=== PATIENT | female | born 1965 ===

== ENCOUNTER 2020-10-17 11:15 | Outpatient (RCR) | payer OTHER, SELFPAY ==
[2020-10-10 12:59] VITALS: BMI 32.0
--- NOTE | 2020-10-10 13:00 | PC.ADMIT ---
Patient is a 55 year old female who was referred to PHP d/t increase in depressive symptoms with passive SI, increased anxiety and irritability. Patient quit her job d/t Covid as she was fearful she would contract it and moved in with her elderly mother. In addition pt has issues with hoarding and has been binge eating since the pandemic and has gained 60 lbs as a result. Pt reports that she has a hx of attending OA and this has helped her in the past. Patient stated she feels bad about herself and has low self esteem and wants to get back to healthy eating. Patient stated she is here, cause I'm so sad and I don't want to be here on earth . Pt reports passive SI, stating, I wish there was a magic way that I don't have to be here . Denied plans or intent to kill herself. Agreed to call crisis if feeling unsafe. Gave verbal permission to email a copy of her safety plan. Pt also stated she feels bad about, being impatient with my mom . Would like to learn ways to cope with stress. Patient stated she was doing better when she was in her own apartment and working. Denied any substance use. Reports hx of sleep apnea. Stated she used a C-Pap machine years ago and stopped using it as she did not feel she needed it anymore when she lost weight. Pt is afraid to go out or make a doctors appointment d/t the pandemic at this time.
--- NOTE | 2020-10-10 15:18 | P.HPPSP_ITS ---
HPI Chief Complaint: depression Sources of Information: patient interviewed and chart reviewed HPI Narrative: 55 yo female, self-referred, reports long hx of depression, very unhappy childhood forever with increases in the symptom and passive SI- I just don't want to be here , anxiety, irritability, lability with binge eating sx- reports 60 lb weight gain and hoarding sx as problematic. Sleep is variable, at times, pt is up at night and reports she eats all night, more recently, re ports nine hours of sleep per night with late night eating. Pt reports gains and losses of ~100 lbs. She is [age] . Was 160 lbs, now 223lbs. By history has done well with OA, 90 day plan for many years. Pt believes having a job helped her with schedule and symptom mgt, however, now without her job (resigned secondary to COVID), symptoms have exacerbated. Pt recently had LIFX testing, expects results to return on 10/13/20. Also, describes significant issues with hoarding- had difficulty in her apartment, now, living with mother, who is 98, pt finds the symptom to be taking over mother's home as well. Past Psychiatric History: IP: Denies OP: Psychotherapy since college. Currently working with [facility]. Dr. Rebecca Graham for psychopharmacology and Bertha Gonzalez for psychotherapy Trials: Paxil, Celexa, Prozac, Wellbutrin-prompted SI, a stimulant Medical Evaluation Reviewed: No (NA) [facility] Medical History (Updated 10/13/20 @ 10:22 by Kinsey Quevedo, SENIOR WINDOWS ENGINEER) Borderline diabetes Flat feet, bilateral Mili's disease Mitral valve prolapse Obesity Peripheral neuropathy Polycystic disease, ovaries Sleep apnea Syncope Ulcer of right leg Vaso vagal episode Venous insufficiency Narrative: Fears appts-faints, feels ill. ?fainting vs seizure-this was a question she was given by people who have observed her with this clinical activity. Sees Liliana Patel MD of [facility] Family History: Denies Social History: Pt has a degree in psychology from [employer]. 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 Lives with her mom who is 98. Father passed in 2002. Two brothers, both older, 67 and 65. Substance History: Denies Trauma History: Affirms without detail. Diagnostics Vital Signs (24Hr): Body Mass Index 32.0 Meds/Allergies Allergies Allergies Allergy/AdvReac Type Severity Reaction Status Date / Time doxycycline Allergy Unknown Unknown Verified 10/10/20 12:59 Penicillins [PCN] Allergy Unknown Rash Verified 10/10/20 12:59 sulfamethizole Allergy Unknown Unknown Verified 10/10/20 12:59 sulfamethoxazole Allergy Unknown Unknown Verified 10/10/20 12:59 [From Bactrim] trimethoprim [From Bactrim] Allergy Unknown Unknown Verified 10/10/20 12:59 bupropion [From Wellbutrin] AdvReac Severe suicidal Verified 10/13/20 11:55 ideation Mental Status Exam Mental Status Exam Patient Appearance: Well Grooomed, Fatigued and Appropriate Patient Orientation: Person, Place, Time and Situation Level of Consciousness: Awake, Appropriate and Alert Patient Behavior: Appropriate, Talkative, Cooperative, Anxious and Distractible Mood Description: Depressed, Anxious, Flat, Sad, Nervous and Apprehensive Affect Description: Flat Patient Cognition Impaired: No Ability to Follow Directions: Excellent Speech Pattern: Clear, Appropriate and Spontaneous Speech Memory Description: Intact Hallucinations: None Delusions: Not Present Thought Process: Intact and Rumination Thought Content: positive for Intact, positive for Logical and positive for Suicidal Ideation (passive, without plan or intent) Depressive Symptoms: Increased Anxiety, Insomnia, Diff. Making Decisions, Increased Irritability, Difficulty Sleeping, Changes in Appetite, Loss of Int. in Activity, Feelings of Worthlessness, Significant Weight Gain, Hopelessness, Feelings of Guilt, Unhappiness, Increased Fatigue, Thoughts of /Suicide (passive, without plan or intent) and Low Self Esteem Judgement: Good Assessment & Plan Patient educated on: diagnosis, medication risk/benefits (Discussed possible trials of Topiramate, Vyvanse, Sertraline pending consults with her cardiac team for approval), therapeutic strategies and medical condition Informed Consent: further education needed Reason for continued partial hosp. stay Substantial Risk for: harm to self, inability to function and rapid decompensation Certification I certify that partial hospital treatment is medically necessary due to the symptoms and problems resulting from the patient's mental illness and the failure to treat the patient at the partial hospital level of care would likely result in the patient requiring inpatient psychiatric care which could not be prevented at a less intensive level of care.
--- NOTE | 2020-10-13 11:01 | PC.NURSE ---
Pt opened in treatment team.
--- NOTE | 2020-10-16 14:20 | HO.PHPPROGNO ---
Subjective Subjective Reason For Visit: depression Interim History: patient depressed withdrawn reports chronic depressive history since childhood with intermittent improvement has been taking care of mother denies active self-harm Medication Compliance: Yes Mental Status Exam Mental Status Exam Patient Orientation: Person, Place, Time and Situation Level of Consciousness: Awake, Appropriate and Alert Patient Behavior: Appropriate, Talkative, Cooperative, Anxious and Distractible Mood Description: Depressed, Anxious, Flat, Sad, Nervous and Apprehensive Affect Description: Flat Patient Cognition Impaired: No Ability to Follow Directions: Excellent Speech Pattern: Clear, Appropriate and Spontaneous Speech Memory Description: Intact Diagnostics Vital Signs (24Hr): Body Mass Index 32.0 Assessment & Plan Assessment & Plan (1) Major depressive disorder, recurrent episode, severe with anxious distress: Status: Acute Code(s): F33.2 - Major depressive disorder, recurrent severe without psychotic features (2) Mitral valve prolapse: Status: Acute Code(s): I34.1 - Nonrheumatic mitral (valve) prolapse Assessment and Plan: CK EKG GET FAX GET COPY OF GENETIC TESTING EXTENSIVE DISCUSSION REGARDING ADDITION OF L METHYL FOLATE 7.5 MG X 2 WEEKS THEN 15 MG WOULD STRONGLY CONSIDER TMS PATIENT HAD HISTORY ARE OF ARRHYTHMIA ON STIMULANTS IT APPEARS consider Rexulti or Abilify augmentation check past genetic testing consider TMS Certification I certify that partial hospital treatment is medically necessary due to the symptoms and problems resulting from the patient's mental illness and the failure to treat the patient at the partial hospital level of care would likely result in the patient requiring inpatient psychiatric care which could not be prevented at a less intensive level of care. Greater than 50% of the session was spent on counseling and/or coordination of care Discharge Plan Discharge Attending provider: Korey Cunha Medications: New levomefolate calcium [L-Methylfolate] 7.5 mg tablet 7.5 mg PO DAILY Qty: 90 RF: 0 No Action multivitamin Tablet 1 tab PO DAILY RF: 0 levothyroxine 25 mcg Tablet 37.5 mcg PO DAILY RF: 0 cholecalciferol (vitamin D3) [Vitamin D3] 25 mcg (1,000 unit) Capsule 25 mcg PO DAILY RF: 0 Fish Oil Capsule 2,500 mg PO DAILY RF: 0 Viibryd 40 mg Tablet 40 mg PO DAILY RF: 0 metoprolol tartrate 25 mg Tablet 12.5 mg PO BID RF: 0
--- NOTE | 2020-10-17 14:05 | PC.NURSE ---
Spoke to Thelma Moss from [facility] in [place] to make a referral to the virtual Binge eating program at patients request. I was told that patient needed to call her insurance company to confirm that [facility] is her primary insurance and to get the first name last initial of the internet sales representative who confirmed this. (pt did state that she thinks she remembers them telling her this when she called the first time). If [facility] is not the primary patient is to call kely to let them know and they would work with her [employer] insurance to get her into the program. In addition, Thelma Moss stated the patient needs to set up the intake appointment. Pt notified and she stated she would call her insurance company to confirm and call Kely at [phone] with the information to set up the intake appointment.
== END 2020-10-17 23:55 | disposition home or self-care (01) ==
LOC: HO.PHPA 11:15
PROVIDERS: Visit Provider Psychiatry & Neurology Psychiatry
DX: F33.2 Major depressive disorder, recurrent severe without psychotic features (principal); I34.1 Nonrheumatic mitral (valve) prolapse; Z79.899 Other long term (current) drug therapy
CPT/HCPCS: 90792; 90853; 99213